=== PATIENT | male | born 1975 | race African-American/Black ===

== ENCOUNTER 2018-09-07 09:02 | Emergency (ER) | payer SELFPAY ==
[~2018-09-07] VITALS: Ht 175.3 cm; Wt 102.5 kg
[2018-09-07 09:18] VITALS: BP 145/80
[2018-09-07 09:58] LABS: Basophils # (auto) 0.1 uL; Basophils % (auto) 0.8 % (0.0-2.0); Eosinophils # (auto) 0.2 uL; Eosinophils % (auto) 2.4 % (0.0-7.0); Hematocrit 44.8 % (41.0-53.0); Hemoglobin 15.5 g/dL (13.5-17.5); Lymphocytes # (auto) 1.8 uL; Lymphocytes % (auto) 22.3 % (10.0-50.0); Mean Corpuscular Hemoglobin 31.3 pg (28.0-32.0); Mean Corpuscular Hgb Conc. 34.7 g/dL (32.0-36.0); Mean Corpuscular Volume 90.2 fL (80.0-100.0); Monocytes # (auto) 0.7 uL; Monocytes % (auto) 8.3 % (0.0-12.0); Neutrophils # (auto) 5.3 uL; Neutrophils % (auto) 66.2 % (37.0-80.0); Nucleated Red Blood Cells % 0.2 %; Platelet Count (auto) 300 10^3/uL (140-450); Red Blood Cells 4.96 10^6/uL (4.5-5.90); Red Cell Distribution Width 12.4 % (11.8-14.3); White Blood Cell 7.9 10^3/uL (4.4-10.8)
[2018-09-07 10:15] LABS: Albumin 4.1 g/dL (3.4-5.0); BUN/Creatinine Ratio 12.9; Calcium 8.7 mg/dL (8.5-10.1); Potassium 3.5 mmol/L (3.5-5.1)
[2018-09-07 10:20] LABS: Bilirubin, Total 0.5 mg/dL (0.2-1.0); Total Protein 8.1 g/dL (6.4-8.2)
[2018-09-07 10:47] LABS: Urine Bacteria NONE SEEN /hpf (None Seen); Urine Blood Negative /uL (Negative); Urine Mucus FEW (None Seen); Urine Specific Gravity 1.007 (1.001-1.035); Urine WBC 3 /hpf (0 - 3)
[2018-09-07] MEDS ORDERED: ASPirin 81 mg TAB PO ONE (11:00)
== END 2018-09-07 11:10 | disposition home or self-care (01) ==
LOC: ER 09:02
DX: R07.89 Other chest pain (principal); E78.5 Hyperlipidemia, unspecified; I10 Essential (primary) hypertension
CPT/HCPCS: 36415; 71046; 80053; 81001; 84484; 85025; 94761

== ENCOUNTER 2018-09-27 06:12 | Emergency (ER) | payer MEDICAID ==
[~2018-09-27] VITALS: Ht 175.3 cm; Wt 102.5 kg
[2018-09-27 07:46] LABS: Basophils # (auto) 0.1 uL; Basophils % (auto) 1.2 % (0.0-2.0); Eosinophils # (auto) 0.4 uL; Eosinophils % (auto) 4.7 % (0.0-7.0); Hemoglobin 14.7 g/dL (13.5-17.5); Lymphocytes # (auto) 1.4 uL; Lymphocytes % (auto) 16.5 % (10.0-50.0); Mean Corpuscular Hemoglobin 31.1 pg (28.0-32.0); Mean Corpuscular Hgb Conc. 34.2 g/dL (32.0-36.0); Monocytes # (auto) 0.9 uL; Monocytes % (auto) 9.9 % (0.0-12.0); Neutrophils # (auto) 5.9 uL; Neutrophils % (auto) 67.7 % (37.0-80.0); Platelet Count (auto) 271 10^3/uL (140-450); Red Blood Cells 4.73 10^6/uL (4.5-5.90); Red Cell Distribution Width 12.8 % (11.8-14.3); White Blood Cell 8.8 10^3/uL (4.4-10.8)
[2018-09-27 07:57] LABS: Potassium 3.9 mmol/L (3.5-5.1)
[2018-09-27] MEDS ORDERED: ASPirin 81 mg TAB PO ONE (08:00)
[2018-09-27 08:02] LABS: Albumin 3.9 g/dL (3.4-5.0); Calcium 8.6 mg/dL (8.5-10.1)
[2018-09-27 08:05] LABS: BUN/Creatinine Ratio 18.3; Bilirubin, Total 0.3 mg/dL (0.2-1.0); Total Protein 7.8 g/dL (6.4-8.2)
[2018-09-27 10:31] VITALS: BP 120/78
== END 2018-09-27 10:48 | disposition home or self-care (01) ==
LOC: ER 06:12
DX: M79.18 Myalgia, other site (principal); R00.2 Palpitations; E78.5 Hyperlipidemia, unspecified; I10 Essential (primary) hypertension
CPT/HCPCS: 36415; 80053; 84484; 85025; 93005

== ENCOUNTER 2018-10-15 15:50 | Emergency (ER) | payer MEDICAID ==
[~2018-10-15] VITALS: Ht 175.3 cm; Wt 107.0 kg
[2018-10-15] MEDS ORDERED: ACETAMINOPHEN 500 MG TAB PO ONE (16:15)
[2018-10-15 16:42] LABS: Basophils # (auto) 0.1 uL; Basophils % (auto) 0.5 % (0.0-2.0); Eosinophils # (auto) 0 uL; Eosinophils % (auto) 0.2 % (0.0-7.0); Hematocrit 40.8 % (41.0-53.0); Hemoglobin 13.9 g/dL (13.5-17.5); Lymphocytes % (auto) 9.5 % (10.0-50.0); Mean Corpuscular Hemoglobin 31.2 pg (28.0-32.0); Mean Corpuscular Volume 91.7 fL (80.0-100.0); Monocytes # (auto) 1.1 uL; Neutrophils # (auto) 8.2 uL; Neutrophils % (auto) 78.8 % (37.0-80.0); Platelet Count (auto) 267 10^3/uL (140-450); Red Blood Cells 4.45 10^6/uL (4.5-5.90); Red Cell Distribution Width 12.8 % (11.8-14.3); White Blood Cell 10.4 10^3/uL (4.4-10.8)
[2018-10-15 16:51] LABS: Albumin 3.4 g/dL (3.4-5.0); Anion Gap 10 (5-15); Calcium 8.3 mg/dL (8.5-10.1); Carbon Dioxide 21 mmol/L (21-32); Chloride 105 mmol/L (98-107); Glucose 90 mg/dL (74-106); Lipase 77 U/L (73-393); Potassium 3.5 mmol/L (3.5-5.1); Sodium 136 mmol/L (136-145)
[2018-10-15 16:53] LABS: Alanine Aminotransferase 28 U/L (16-61); Aspartate Aminotransferase 11 U/L (15-37); Blood Urea Nitrogen 9 mg/dL (7-18); GFR African American 133 mL/min; GFR Non-African American 110 mL/min
[2018-10-15 16:56] LABS: Alkaline Phosphatase 57 U/L (45-117); Bilirubin, Total 0.4 mg/dL (0.2-1.0); Total Protein 7.5 g/dL (6.4-8.2)
[2018-10-15 17:12] LABS: Urine Bacteria NONE SEEN /hpf (None Seen); Urine Blood 2+ /uL (Negative); Urine Mucus FEW (None Seen); Urine WBC 1 /hpf (0 - 3)
[2018-10-15 20:39] VITALS: BP 113/74
== END 2018-10-15 22:01 | disposition home or self-care (01) ==
LOC: ER 15:52
DX: I88.0 Nonspecific mesenteric lymphadenitis (principal); R50.9 Fever, unspecified; R11.2 Nausea with vomiting, unspecified; E78.5 Hyperlipidemia, unspecified; I10 Essential (primary) hypertension
CPT/HCPCS: 36415; 74176; 80053; 81001; 83605; 83690; 85025; 87040

== ENCOUNTER 2018-12-20 12:42 | Emergency (ER) | payer MEDICAID ==
[~2018-12-20] VITALS: Ht 175.3 cm; Wt 108.9 kg
[2018-12-20 13:30] LABS: Basophils # (auto) 0.1 uL; Basophils % (auto) 1.3 % (0.0-2.0); Eosinophils # (auto) 0.3 uL; Eosinophils % (auto) 4.2 % (0.0-7.0); Hematocrit 43.8 % (41.0-53.0); Lymphocytes # (auto) 2.4 uL; Lymphocytes % (auto) 29.2 % (10.0-50.0); Mean Corpuscular Hemoglobin 31.2 pg (28.0-32.0); Mean Corpuscular Hgb Conc. 34.4 g/dL (32.0-36.0); Mean Corpuscular Volume 90.9 fL (80.0-100.0); Monocytes # (auto) 0.7 uL; Monocytes % (auto) 8.8 % (0.0-12.0); Neutrophils # (auto) 4.6 uL; Neutrophils % (auto) 56.5 % (37.0-80.0); Nucleated Red Blood Cells % 0.1 %; Platelet Count (auto) 264 10^3/uL (140-450); Red Blood Cells 4.82 10^6/uL (4.5-5.90); White Blood Cell 8.2 10^3/uL (4.4-10.8)
[2018-12-20 13:49] LABS: Albumin 3.9 g/dL (3.4-5.0); Anion Gap 7 (5-15); Blood Urea Nitrogen 14 mg/dL (7-18); Calcium 8.5 mg/dL (8.5-10.1); Carbon Dioxide 26 mmol/L (21-32); Chloride 106 mmol/L (98-107); Glucose 105 mg/dL (74-106); Potassium 3.5 mmol/L (3.5-5.1); Sodium 139 mmol/L (136-145)
[2018-12-20 13:54] LABS: Alanine Aminotransferase 32 U/L (16-61); Alkaline Phosphatase 58 U/L (45-117); Aspartate Aminotransferase 13 U/L (15-37); BUN/Creatinine Ratio 14.9; Bilirubin, Total 0.4 mg/dL (0.2-1.0); GFR African American 114 mL/min; GFR Non-African American 94 mL/min
[2018-12-20 14:04] LABS: Cholesterol 140 mg/dL (< 200); Triglycerides 99 mg/dL (< 150)
[2018-12-20 14:05] LABS: HDL Cholesterol 58 mg/dL (40-59); LDL Cholesterol 75 mg/dL (< 100)
[2018-12-20 16:07] LABS: Urine WBC None Seen /hpf (0 - 3)
[2018-12-20 16:14] LABS: Urine Bacteria NONE SEEN /hpf (None Seen); Urine Blood Negative /uL (Negative); Urine Specific Gravity 1.006 (1.001-1.035)
[2018-12-20 16:15] VITALS: BP 113/63
[2018-12-20 16:32] LABS: Alcohol, Urine < 3.0 mg/dL (0-5); Amphetamine Screen, Urine NEGATIVE (NEGATIVE); Barbiturate Scree,Urine NEGATIVE (NEGATIVE); Benzodiazephine Screen, Urine NEGATIVE (NEGATIVE); Cannabinoid Screen, Urine POSITIVE (NEGATIVE); Cocaine Screen, Urine NEGATIVE (NEGATIVE); Opiate Scree,Urine NEGATIVE (NEGATIVE); Phencyclidine Screen, Urine NEGATIVE (NEGATIVE)
== END 2018-12-20 18:38 | disposition home or self-care (01) ==
LOC: ER 12:42
DX: R07.89 Other chest pain (principal); K29.70 Gastritis, unspecified, without bleeding; F12.188 Cannabis abuse with other cannabis-induced disorder; E78.5 Hyperlipidemia, unspecified; I10 Essential (primary) hypertension
CPT/HCPCS: 36415; 71046; 80053; 80061; 80307; 81001; 83735; 84484; 85025; 93005; 94761

== ENCOUNTER 2019-02-19 20:53 | Emergency (ER) | payer MEDICAID ==
[~2019-02-19] VITALS: Ht 175.3 cm; Wt 111.1 kg
[2019-02-19 21:41] LABS: Basophils # (auto) 0.1 uL; Basophils % (auto) 1.3 % (0.0-2.0); Eosinophils # (auto) 0.6 uL; Eosinophils % (auto) 6.2 % (0.0-7.0); Hematocrit 45.2 % (41.0-53.0); Hemoglobin 15.4 g/dL (13.5-17.5); Lymphocytes # (auto) 3.5 uL; Lymphocytes % (auto) 35.5 % (10.0-50.0); Mean Corpuscular Hemoglobin 31.1 pg (28.0-32.0); Mean Corpuscular Hgb Conc. 34.1 g/dL (32.0-36.0); Mean Corpuscular Volume 91.2 fL (80.0-100.0); Monocytes # (auto) 0.8 uL; Monocytes % (auto) 7.7 % (0.0-12.0); Neutrophils # (auto) 4.9 uL; Neutrophils % (auto) 49.3 % (37.0-80.0); Nucleated Red Blood Cells % 0.1 %; Platelet Count (auto) 263 10^3/uL (140-450); Red Blood Cells 4.96 10^6/uL (4.5-5.90); Red Cell Distribution Width 12.8 % (11.8-14.3); White Blood Cell 9.9 10^3/uL (4.4-10.8)
[2019-02-19 21:46] LABS: Alanine Aminotransferase 35 U/L (16-61); Anion Gap 8 (5-15); Aspartate Aminotransferase 15 U/L (15-37); Blood Urea Nitrogen 11 mg/dL (7-18); Calcium 8.9 mg/dL (8.5-10.1); Carbon Dioxide 23 mmol/L (21-32); Chloride 109 mmol/L (98-107); GFR African American 117 mL/min; GFR Non-African American 96 mL/min; Glucose 109 mg/dL (74-106); Potassium 3.7 mmol/L (3.5-5.1); Sodium 140 mmol/L (136-145)
[2019-02-19 21:51] LABS: Alkaline Phosphatase 62 U/L (45-117); Bilirubin, Total 0.4 mg/dL (0.2-1.0)
[2019-02-20 00:10] LABS: Urine Bacteria FEW /hpf (None Seen); Urine Blood Negative /uL (Negative); Urine Mucus FEW (None Seen); Urine Specific Gravity 1.029 (1.001-1.035); Urine WBC 2 /hpf (0 - 3)
[2019-02-20] MEDS ORDERED: LORazepam 0.5 MG TAB PO ONE (00:30)
[2019-02-20] MEDS ORDERED: ALUM & MAG HYDROX-SIMETH LIQ(MAALOX) 30 ML PO ONE (00:30)
[2019-02-20 06:21] VITALS: BP 133/73
== END 2019-02-20 06:41 | disposition home or self-care (01) ==
LOC: ER 20:56
DX: R07.9 Chest pain, unspecified (principal); E78.5 Hyperlipidemia, unspecified; I10 Essential (primary) hypertension; F12.90 Cannabis use, unspecified, uncomplicated; F15.90 Other stimulant use, unspecified, uncomplicated
CPT/HCPCS: 36415; 71046; 80053; 81001; 84484; 85025; 93005

== ENCOUNTER 2019-02-24 19:27 | Emergency (ER) | payer MEDICAID ==
[~2019-02-24] VITALS: Ht 175.3 cm; Wt 113.4 kg
[2019-02-24 20:02] VITALS: BP 150/79
[2019-02-24 20:13] LABS: Basophils # (auto) 0.1 uL; Basophils % (auto) 1.3 % (0.0-2.0); Eosinophils # (auto) 0.5 uL; Eosinophils % (auto) 5.2 % (0.0-7.0); Hematocrit 44.5 % (41.0-53.0); Hemoglobin 14.9 g/dL (13.5-17.5); Lymphocytes # (auto) 3.5 uL; Lymphocytes % (auto) 34.5 % (10.0-50.0); Mean Corpuscular Hemoglobin 30.7 pg (28.0-32.0); Mean Corpuscular Hgb Conc. 33.5 g/dL (32.0-36.0); Mean Corpuscular Volume 91.8 fL (80.0-100.0); Monocytes # (auto) 0.9 uL; Monocytes % (auto) 8.6 % (0.0-12.0); Neutrophils # (auto) 5.1 uL; Neutrophils % (auto) 50.4 % (37.0-80.0); Platelet Count (auto) 253 10^3/uL (140-450); Red Blood Cells 4.85 10^6/uL (4.5-5.90); Red Cell Distribution Width 12.8 % (11.8-14.3); White Blood Cell 10.1 10^3/uL (4.4-10.8)
[2019-02-24 20:29] LABS: Albumin 3.9 g/dL (3.4-5.0); Anion Gap 5 (5-15); Blood Alcohol < 3.0 mg/dL (0-5); Blood Urea Nitrogen 13 mg/dL (7-18); Calcium 8.4 mg/dL (8.5-10.1); Carbon Dioxide 26 mmol/L (21-32); Chloride 109 mmol/L (98-107); Glucose 108 mg/dL (74-106); Salicylate < 1.7 mg/dL (2.8-20.0); Sodium 140 mmol/L (136-145)
[2019-02-24 20:30] LABS: Acetaminophen < 2.0 ug/mL (10-30)
[2019-02-24 20:32] LABS: INR 0.95 (0.9-1.15); Partial Thromboplastin Time 23.6 sec (23.64-32.05)
[2019-02-24 20:33] LABS: Alanine Aminotransferase 29 U/L (16-61); Alkaline Phosphatase 59 U/L (45-117); Aspartate Aminotransferase 12 U/L (15-37); BUN/Creatinine Ratio 13.4; Bilirubin, Total 0.3 mg/dL (0.2-1.0); GFR African American 110 mL/min; GFR Non-African American 91 mL/min; Total Protein 7.6 g/dL (6.4-8.2)
[2019-02-24 20:36] LABS: Urine Bacteria NONE SEEN /hpf (None Seen); Urine Blood Negative /uL (Negative); Urine Mucus FEW (None Seen); Urine Specific Gravity 1.028 (1.001-1.035); Urine WBC 1 /hpf (0 - 3)
[2019-02-24 20:52] LABS: Alcohol, Urine < 3.0 mg/dL (0-5); Amphetamine Screen, Urine NEGATIVE (NEGATIVE); Barbiturate Scree,Urine NEGATIVE (NEGATIVE); Benzodiazephine Screen, Urine NEGATIVE (NEGATIVE); Cannabinoid Screen, Urine POSITIVE (NEGATIVE); Cocaine Screen, Urine NEGATIVE (NEGATIVE); Opiate Scree,Urine NEGATIVE (NEGATIVE); Phencyclidine Screen, Urine NEGATIVE (NEGATIVE)
== END 2019-02-25 00:22 | disposition left against medical advice (07) ==
LOC: ER 19:28
DX: R07.9 Chest pain, unspecified (principal); Z53.21 Procedure and treatment not carried out due to patient leaving prior to being seen by health care provider
CPT/HCPCS: 36415; 71046; 80053; 80307; 80320; 80329; 81001; 83735; 83880; 84484; 85025; 85610; 85730

== ENCOUNTER 2019-08-23 17:03 | Emergency (ER) | payer MEDICAID ==
[~2019-08-23] VITALS: Ht 175.3 cm; Wt 103.0 kg
[2019-08-23 17:30] VITALS: BP 106/56
[2019-08-23] MEDS ORDERED: TETANUS-DIPTH-ACEL PERTUSSIS 0.5ML SYR Tdap IM ONE (18:00)
== END 2019-08-23 18:18 | disposition home or self-care (01) ==
LOC: ER 17:03
DX: S61.412A Laceration without foreign body of left hand, initial encounter (principal); E78.5 Hyperlipidemia, unspecified; I10 Essential (primary) hypertension; W26.8XXA Contact with other sharp object(s), not elsewhere classified, initial encounter; Y93.89 Activity, other specified; Y92.89 Other specified places as the place of occurrence of the external cause; Y99.8 Other external cause status
CPT/HCPCS: 12002; 90471; 90715

== ENCOUNTER 2020-01-02 16:56 | Inpatient (IN) | payer MEDICAID ==
[~2020-01-02] VITALS: Ht 175.3 cm; Wt 99.0 kg
[2020-01-02 18:28] LABS: Basophils # (auto) 0.1 10 ^3/uL (0-0.2); Basophils % (auto) 0.7 % (0.0-2.0); Eosinophils # (auto) 0.2 10 ^3/uL (0-0.8); Eosinophils % (auto) 1.6 % (0.0-7.0); Hematocrit 27.7 % (41.0-53.0); Hemoglobin 8.8 g/dL (13.5-17.5); Lymphocytes # (auto) 1.8 10 ^3/uL (0.4-5.4); Lymphocytes % (auto) 13.6 % (10.0-50.0); Mean Corpuscular Hemoglobin 29.5 pg (28.0-32.0); Mean Corpuscular Hgb Conc. 31.9 g/dL (32.0-36.0); Mean Corpuscular Volume 92.3 fL (80.0-100.0); Monocytes # (auto) 1.8 10 ^3/uL (0-1.3); Monocytes % (auto) 13.5 % (0.0-12.0); Neutrophils # (auto) 9.5 10 ^3/uL (1.6-8.6); Neutrophils % (auto) 70.6 % (37.0-80.0); Nucleated Red Blood Cells % 0.3 %; Platelet Count (auto) 494 10^3/uL (140-450); Red Cell Distribution Width 12.5 % (11.8-14.3); White Blood Cell 13.4 10^3/uL (4.4-10.8)
[2020-01-02 18:41] LABS: Calcium 8.7 mg/dL (8.5-10.1); Magnesium 2.6 mg/dL (1.6-2.6); Potassium 4.4 mmol/L (3.5-5.1)
[2020-01-02 18:46] LABS: BUN/Creatinine Ratio 15.8; Bilirubin, Total 0.4 mg/dL (0.2-1.0); Total Protein 7.5 g/dL (6.4-8.2)
[2020-01-02] MEDS ORDERED: FUROSEMIDE 20 MG/2 ML VIAL IV ONE (21:15)
[2020-01-02] MEDS ORDERED: ONDANSETRON HCL 4 MG/2 ML VIAL IV PRN (21:45)
[2020-01-02] MEDS ORDERED: DEXTROSE (50%) 50ML SYRG IV PRN (21:45)
[2020-01-02] MEDS ORDERED: ACETAMINOPHEN 325 MG TAB PO PRN (21:45)
[2020-01-02] MEDS ORDERED: NITROGLYCERIN 0.4 MG SL TAB SL PRN (21:45)
[2020-01-02] MEDS ORDERED: LORazepam 0.5 MG TAB PO PRN (21:45)
[2020-01-02] MEDS ORDERED: MORPHINE SULFATE 4 MG/ML SYR/VIAL IV PRN (21:45)
[2020-01-02] MEDS: CARVEDILOL 3.125 MG TAB PO SCH (22:16)
[2020-01-02] MEDS: ATORVASTATIN 20 MG TAB PO SCH (22:17)
[2020-01-02] MEDS: ENOXAPARIN SOD 100 MG/1 ML SYRINGE SC SCH (22:17)
[2020-01-03] VITALS (8 sets, daily range): BP systolic 103–132; BP diastolic 64–76
[2020-01-03] MEDS: ACCU-CHEK COMFORT CURVE STRIP VI SCH ×3 (00:12→08:00)
--- NOTE | 2020-01-03 02:15 | NUR ---
Telemetry admit from JONATHAN TATUMTIFFANIE PEREZ admitted to Telemetry unit. No SBAR received. Patient oriented to MARLENY SOLITARIO, RN primary RN, unit, room, bed, and unit policies regarding patient care and visiting hours. Patient now on continuous telemetry monitoring, tele box #63 and telemetry reading on arrival to unit is sinus rhythm at 86. Patient weighed by bed scale and encouraged to call if they need something. All questions and concerns addressed, patient verbalized understanding. Note: Personal medications collected and logged. Will be sent to pharmacy for storage.
[2020-01-03] MEDS ORDERED: SUCR1SUS16 PO (02:25)
[2020-01-03] MEDS ORDERED: METH500T22 PO (02:25)
[2020-01-03] MEDS ORDERED: ONDA-144 PO (02:25)
[2020-01-03] MEDS ORDERED: METO25TA5 PO (02:25)
[2020-01-03] MEDS ORDERED: PANT40TA2 PO (02:25)
[2020-01-03] MEDS ORDERED: WARF1TAB36 PO (02:25)
--- NOTE | 2020-01-03 02:35 | NUR ---
MRSA swab collected and sent to lab via [employer] system.
[2020-01-03] MEDS: InsuLIN REG 1unit/0.01ml Soln (100units/ml) SC SCH ×3 (04:00→08:00)
--- NOTE | 2020-01-03 04:00 | NUR ---
Pictures taken of surgical incision for reference.
--- NOTE | 2020-01-03 06:17 | NUR ---
Urine sample collected and sent to lab via [employer] system.
[2020-01-03 06:47] LABS: Urine Bacteria NONE SEEN /hpf (None Seen); Urine Blood Negative /uL (Negative); Urine Mucus FEW (None Seen); Urine Specific Gravity 1.019 (1.001-1.035); Urine WBC 1 /hpf (0 - 3)
[2020-01-03] MEDS ORDERED: MORPHINE SULF INJ 2 MG/ML SYRINGE 1ML IV PRN (07:15)
--- NOTE | 2020-01-03 07:30 | NUR ---
Opening Shift Note Assumed care of patient, awake and alert. No S/S of distress/SOB or pain. Instructed on POC and to call for assist PRN, will continue to monitor for changes Q1hr and PRN.Bed is locked and in lowest position. Call light within reach.
[2020-01-03] MEDS: CLOPIDOGREL BISULFATE 75 MG TAB PO SCH (09:58)
[2020-01-03] MEDS: ASPirin 81 mg TAB PO SCH (09:58)
[2020-01-03] MEDS: LISINOPRIL 10 MG TAB PO SCH (09:59)
[2020-01-03] MEDS: DOCUSATE SOD 100 MG CAP PO SCH (09:59)
[2020-01-03] MEDS: CARVEDILOL 3.125 MG TAB PO SCH ×2 (09:59→22:12)
[2020-01-03] MEDS: ENOXAPARIN SOD 100 MG/1 ML SYRINGE SC SCH ×2 (10:00→22:11)
[2020-01-03 10:58] LABS: Basophils # (auto) 0.1 10 ^3/uL (0-0.2); Basophils % (auto) 0.9 % (0.0-2.0); Eosinophils # (auto) 0.3 10 ^3/uL (0-0.8); Eosinophils % (auto) 2.1 % (0.0-7.0); Hemoglobin 8.6 g/dL (13.5-17.5); Lymphocytes # (auto) 2.1 10 ^3/uL (0.4-5.4); Lymphocytes % (auto) 15.2 % (10.0-50.0); Mean Corpuscular Hemoglobin 30.4 pg (28.0-32.0); Mean Corpuscular Hgb Conc. 33.2 g/dL (32.0-36.0); Mean Corpuscular Volume 91.5 fL (80.0-100.0); Monocytes # (auto) 1.5 10 ^3/uL (0-1.3); Monocytes % (auto) 10.9 % (0.0-12.0); Neutrophils # (auto) 9.7 10 ^3/uL (1.6-8.6); Neutrophils % (auto) 70.9 % (37.0-80.0); Nucleated Red Blood Cells % 0.2 %; Platelet Count (auto) 449 10^3/uL (140-450); Red Blood Cells 2.84 10^6/uL (4.5-5.90); Red Cell Distribution Width 12.5 % (11.8-14.3); White Blood Cell 13.7 10^3/uL (4.4-10.8)
[2020-01-03 11:16] LABS: Calcium 8.4 mg/dL (8.5-10.1); Potassium 3.8 mmol/L (3.5-5.1)
--- NOTE | 2020-01-03 19:03 | NUR ---
STAT EKG ORDER FOR STAT EKG DR. CARMONA COMPLETED. EKG STRIP IS IN HARD CHART.
--- NOTE | 2020-01-03 19:45 | NUR ---
OPENING SHIFT NOTE Assumed care of patient who is A&O x4. Currently on RA. Denies SOB or dizziness. Reports mild pain to surgical incision, however declines pain management at this time. PIV in left forearm is intact and patent. Flushed with 10ml NS. POC discussed and all questions answered. Patient is agitated due to not seeing a doctor as of yet today. Patient reassured that his doctors have placed orders and initiated a POC. Bed is in low locked position with side rails up x2. Call light is within reach and patient encouraged to call for assistance when needed. Will continue to monitor for changes PRN.
[2020-01-03] MEDS: ATORVASTATIN 20 MG TAB PO SCH (22:11)
[2020-01-03] MEDS ORDERED: POLYETHYLENE GLYCOL 17 GM PWDR PO PRN (22:30)
[2020-01-03] MEDS ORDERED: PANTOPRAZOLE 40 MG TAB PO ONE ×2 (22:30→22:46)
[2020-01-03] MEDS ORDERED: POLYETHYLENE GLYCOL 17 GM PWDR PO ONE (22:30)
[2020-01-03] MEDS: DOXYCYCLINE 100MG/250ML 250 ML IV SCH (22:49)
[2020-01-04] VITALS (8 sets, daily range): BP systolic 97–135; BP diastolic 51–64
[2020-01-04] MEDS: ZOLPIDEM TARTRATE 5 MG TAB PO PRN ×2 (00:10→23:10)
--- NOTE | 2020-01-04 04:43 | NUR ---
ORTHOSTATIC VITALS Laying: pulse: 90, BP: 109/64 Sitting: pulse: 97, BP: 127/71 Standing: Pulse: 103, BP: 127/67
[2020-01-04 05:57] LABS: Basophils # (auto) 0.1 10 ^3/uL (0-0.2); Basophils % (auto) 0.7 % (0.0-2.0); Eosinophils # (auto) 0.3 10 ^3/uL (0-0.8); Eosinophils % (auto) 2.2 % (0.0-7.0); Hematocrit 25.5 % (41.0-53.0); Hemoglobin 8.5 g/dL (13.5-17.5); Lymphocytes # (auto) 2.3 10 ^3/uL (0.4-5.4); Lymphocytes % (auto) 16.6 % (10.0-50.0); Mean Corpuscular Hemoglobin 30.2 pg (28.0-32.0); Mean Corpuscular Hgb Conc. 33.2 g/dL (32.0-36.0); Monocytes # (auto) 1.5 10 ^3/uL (0-1.3); Neutrophils # (auto) 9.6 10 ^3/uL (1.6-8.6); Neutrophils % (auto) 69.5 % (37.0-80.0); Nucleated Red Blood Cells % 0.1 %; Platelet Count (auto) 426 10^3/uL (140-450); Red Blood Cells 2.81 10^6/uL (4.5-5.90); Red Cell Distribution Width 12.4 % (11.8-14.3); White Blood Cell 13.9 10^3/uL (4.4-10.8)
[2020-01-04 06:30] LABS: Potassium 3.6 mmol/L (3.5-5.1)
[2020-01-04 06:35] LABS: BUN/Creatinine Ratio 21.4
[2020-01-04] MEDS: PANTOPRAZOLE 40 MG TAB PO SCH (06:43)
--- NOTE | 2020-01-04 07:30 | NUR ---
Opening Shift Note Assumed care of patient, awake and alert. No S/S of distress/SOB or pain. Instructed on POC and to call for assist PRN, will continue to monitor for changes Q1hr and PRN. Bed is locked and in lowest position. Call light within reach.
[2020-01-04] MEDS: ASPirin 81 mg TAB PO SCH (09:52)
[2020-01-04] MEDS: DOXYCYCLINE 100MG/250ML 250 ML IV SCH ×2 (09:52→23:10)
[2020-01-04] MEDS: CARVEDILOL 3.125 MG TAB PO SCH (09:55)
[2020-01-04] MEDS: LISINOPRIL 10 MG TAB PO SCH (09:55)
[2020-01-04] MEDS: ENOXAPARIN SOD 100 MG/1 ML SYRINGE SC SCH (09:56)
[2020-01-04] MEDS: CLOPIDOGREL BISULFATE 75 MG TAB PO SCH (09:56)
[2020-01-04] MEDS: DOCUSATE SOD 100 MG CAP PO SCH (09:56)
[2020-01-04 11:44] LABS: INR 1.72 (0.9-1.15)
[2020-01-04] MEDS ORDERED: phytonadione 10 MG in SODIUM CHL 0.9% 50 ML IV ONE (12:45)
[2020-01-04] MEDS ORDERED: POTASSIUM CHL 20 Meq TABLET PO ONE (12:45)
--- NOTE | 2020-01-04 12:53 | NUR ---
DR. CARMONA CARDIO DR. CARMONA AT BEDSIDE FOR CARDIOLOGY CONSULTATION. DR. CARMONA INPUT ORDERS AND THEY WILL BE CARRIED OUT. DR. CARMONA WILL LIKE PATIENT TRANSFERRED TO [facility] FOR CLOSE OBSERVATION. REMELT OPERATOR GREGORY NOTIFIED REGARDING TRANSFER OF CARE. PATIENT UPDATED ON POC VERBALIZE UNDERSTANDING.
[2020-01-04] MEDS: SODIUM CHLORIDE 0.9% 1,000 ML IV SCH (14:41)
--- NOTE | 2020-01-04 17:30 | NUR ---
DR. BOLAÑOS AT BEDSIDE INFORMED ABOUT PATIENT TRANSFER TO [facility] WITH DR. MARIN. THE TRANSFER WAS ACCEPTED DR. CARMONA SPOKE TO DR. MARIN REGARDING PATIENTS POC. PATIENTS FILE WAS FAXED TO [facility] [phone] AND [facility] [phone] WITH AUTHORIZATION NUMBER OF [id number] IN FACE SHEET. SPOKE TO DESTINY FROM [facility] AT NUMBER [phone] REGARDING [facility] AUTHORIZATION AND CONFIRMATION FILE WAS RECEIVED. [facility] CAN BE CONTACTED AT [phone] SHOP SERVICE TECHNICIAN TO DETERMINE IF PAPERWORK WAS RECEIVED AND IF A BED IS AVAILABLE. WILL GIVE REPORT TO NIGHT RN TO FOLLOW UP WITH [facility] TRANSFER. WHEN BED IS AVAILABLE AT [facility] PLEASE CALL [phone] TO ARRANGE TRANSPORT. AUTHORIZATION NUMBER IS [id number]. PATIENT WAS TRANSFERRED TO [facility] STATUS PER DR. CARMONA. PATIENT WAS TRANSFERRED TO ROOM 271 [address].
--- NOTE | 2020-01-04 19:30 | NUR ---
Opening Shift Note Assumed care of patient, awake and alert x4. No S/S of distress/SOB or pain noted. Instructed on POC and to call for assist PRN. Call light within reach, side rails up x2, bed is in the lowest position. All questions and concerns answered, will continue to monitor for changes Q1hr and PRN.
--- NOTE | 2020-01-04 20:28 | NUR ---
1 unit of fresh frozen plasma started, witnessed by second RN Tracie. Explained to the patient the S/S of any reactions with a transfusion, patient verbalized understanding. VS are T-99.5, HR- 75. O2 SAT- 97%, BP-105/51, R-17. See transfusion documentation.
--- NOTE | 2020-01-04 20:43 | NUR ---
First 15 min into transfusion, no reaction noted. See VS in transfusion documentation. Call light is within reach. Will continue to monitor.
--- NOTE | 2020-01-04 21:36 | NUR ---
Called [facility], spoke with Ingrid in the Nursing Administration office. All transfer paperwork was received. There are no beds currently available on the tele floor, Ingrid stated she will be in the office tomorrow and will give an update if any beds become available.
--- NOTE | 2020-01-04 22:08 | NUR ---
Transfusion ended 1 unit of fresh frozen plasma infused. No reaction noted, call light is within reach.
--- NOTE | 2020-01-04 23:08 | NUR ---
1 hour post transfusion vitals BP-111/56, R-20, O2 SAT- 97%, T-99.7, HR- 93.
[2020-01-04] MEDS: ATORVASTATIN 20 MG TAB PO SCH (23:10)
[2020-01-05] MEDS: SODIUM CHLORIDE 0.9% 1,000 ML IV SCH ×2 (00:05→15:54)
[2020-01-05 05:00] VITALS: BP 112/61
[2020-01-05 05:25] LABS: Basophils # (auto) 0.1 10 ^3/uL (0-0.2); Basophils % (auto) 0.5 % (0.0-2.0); Eosinophils # (auto) 0.5 10 ^3/uL (0-0.8); Eosinophils % (auto) 3.9 % (0.0-7.0); Hematocrit 25.4 % (41.0-53.0); Hemoglobin 8.5 g/dL (13.5-17.5); Lymphocytes # (auto) 2.2 10 ^3/uL (0.4-5.4); Lymphocytes % (auto) 18.9 % (10.0-50.0); Mean Corpuscular Hemoglobin 30.3 pg (28.0-32.0); Mean Corpuscular Hgb Conc. 33.4 g/dL (32.0-36.0); Mean Corpuscular Volume 90.8 fL (80.0-100.0); Monocytes # (auto) 1.2 10 ^3/uL (0-1.3); Monocytes % (auto) 10.5 % (0.0-12.0); Neutrophils # (auto) 7.7 10 ^3/uL (1.6-8.6); Neutrophils % (auto) 66.2 % (37.0-80.0); Nucleated Red Blood Cells % 0.1 %; Platelet Count (auto) 381 10^3/uL (140-450); Red Blood Cells 2.79 10^6/uL (4.5-5.90); Red Cell Distribution Width 12.4 % (11.8-14.3); White Blood Cell 11.7 10^3/uL (4.4-10.8)
[2020-01-05 05:41] LABS: BUN/Creatinine Ratio 18.1; Calcium 8.1 mg/dL (8.5-10.1); Potassium 3.9 mmol/L (3.5-5.1)
--- NOTE | 2020-01-05 07:40 | NUR ---
Opening Note Received report from mallet cutter RN. Patient is awake, alert and oriented x4. No signs or symptoms of distress noted at this time. Patient is on room air, respirations even and unlabored. Patient denies pain at this time. Reviewed plan of care with patient, patient verbalized understanding. Bed in low and locked position, call light within reach. Will continue to monitor Q1 hour and PRN.
[2020-01-05 08:33] VITALS: BP 118/53
--- NOTE | 2020-01-05 09:04 | NUR ---
Dr. Massey station Updating this RN on plan of care. New orders received to place patient on cardiac 2gm Na diet. Will implement new orders, will continue to monitor Q1 hour and PRN.
--- NOTE | 2020-01-05 09:16 | NUR ---
electrical installation supervisor 01/04/2020 While electrical installation supervisor 01/04/2020 at 450pm I received a page from Dr Collier and Ramiro BECKHAM regarding transfer to higher level of care. I informed [place] to send Prder and transfer chart to [facility] [phone] and [facility] [phone] Auth# [id number] for Hospital per Margaret [facility] hospice case manager. [facility] Auth # [id number] per Margaret Mutuel Teller at [facility]. Bethany verbalized understanding. Addendum: 01/05/20 at 1523 by Romi VALDERRAMA Amended: Links added.
--- NOTE | 2020-01-05 10:05 | NUR ---
Patient ambulated Patient ambulated to restroom, unassisted. Patient tolerated well. Will continue to monitor Q1 hour and PRN.
[2020-01-05] MEDS: DOXYCYCLINE 100MG/250ML 250 ML IV SCH ×2 (10:20→22:32)
[2020-01-05] MEDS: PANTOPRAZOLE 40 MG TAB PO SCH (10:20)
[2020-01-05] MEDS: DOCUSATE SOD 100 MG CAP PO SCH (10:20)
--- NOTE | 2020-01-05 11:33 | NUR ---
1130 01/05/20 - Contacted [facility] transfer center at [phone] requesting update on pending transfer, per inhouse diesel powerplant supervisor there are no beds available and they have 17 patients on hold in the Emergency department.
[2020-01-05 13:00] VITALS: BP 133/85
--- NOTE | 2020-01-05 16:00 | NUR ---
Report given to [facility] Report called and given to Nely BECKHAM in [facility]. Patient to transfer to room 262 once clean.
--- NOTE | 2020-01-05 16:35 | NUR ---
Patient transferred to [facility] Patient transferred via gurney with all personal belongings. No signs or symptoms of distress noted at this time.
--- NOTE | 2020-01-05 16:40 | NUR ---
TRANSFER Received patient from 271[address] via bed after getting report from Bhavya RN. Patient is A&Ox4, denies pain and has no s/s of distress. Patient is awaiting a transfer to [facility] for HLOC when a bed is available. Patient has been accepted by Dr Lyn Finley. Patient connected to bedside monitor. Vitals signs as follows: HR 92 BP 126/72 RR 25 O2sats 97% on RA Temp 99.4F oral. Patient with IV to left AC #20. Line is patent flushes but is tender per patient. IVF of NS @ 75ml/hr held until new IV access can be obtained. Bed in lowest position, rails x2 up and call light within reach. Updated patient on plan of care. Will continue to monitor.
--- NOTE | 2020-01-05 17:13 | NUR ---
Patient states that as soon as he gets a ride, he is 'outta here'. Patient is afraid that he will get an infection. Patient states that he will get a ride to [place]. Dr Gautam Collier paged.
--- NOTE | 2020-01-05 18:25 | NUR ---
Dr Gautam Collier at bedside discussing patient's wishes to sign out AMA. All risks explained to patient. signed AMA paper. Patient not wanting to sign until his ride gets here.
--- NOTE | 2020-01-05 19:29 | NUR ---
END OF SHIFT Report given to NOC RN, Sherrie. Patient still waiting for ride to go AMA.
--- NOTE | 2020-01-05 19:37 | NUR ---
Called to patient's room. Patient states he is no longer leaving. His ride will not come because they spoke to a nurse friend who recommended them to have patient stay and wait for bed at [place]. Patient agreed to have RN tear up AMA form signed earlier by Dr Gautam Collier. Sherrie BECKHAM aware. Will notify Dr Gautam Collier.
[2020-01-05 20:00] VITALS: BP 133/74
--- NOTE | 2020-01-05 21:19 | NUR ---
Pt stable at this time, resting in bed. Ok in room and to stay. Called shay FERRIS to report that pt will not be leaving tonight. Will continue to monitor. Pt states a small pinch of pain to left chest but does not need pain medication at this time, perhaps to sleep. No S/S of distress. Incision well approximated and open to air.
[2020-01-05] MEDS: ATORVASTATIN 20 MG TAB PO SCH (22:32)
[2020-01-06] VITALS: BP 117/63
--- NOTE | 2020-01-06 00:30 | NUR ---
IV tender. DC IV, canula intact. Inserted new IV, 22g. Pt tolerated well. No S/S of distress.
[2020-01-06] MEDS: ZOLPIDEM TARTRATE 5 MG TAB PO PRN (03:02)
[2020-01-06 03:45] LABS: Basophils # (auto) 0.1 10 ^3/uL (0-0.2); Basophils % (auto) 0.9 % (0.0-2.0); Eosinophils # (auto) 0.4 10 ^3/uL (0-0.8); Eosinophils % (auto) 4.3 % (0.0-7.0); Hematocrit 28.3 % (41.0-53.0); Hemoglobin 9.1 g/dL (13.5-17.5); Lymphocytes # (auto) 1.6 10 ^3/uL (0.4-5.4); Lymphocytes % (auto) 15.3 % (10.0-50.0); Mean Corpuscular Hemoglobin 29.4 pg (28.0-32.0); Mean Corpuscular Hgb Conc. 32.1 g/dL (32.0-36.0); Mean Corpuscular Volume 91.5 fL (80.0-100.0); Monocytes # (auto) 1.1 10 ^3/uL (0-1.3); Monocytes % (auto) 10.7 % (0.0-12.0); Neutrophils # (auto) 7.1 10 ^3/uL (1.6-8.6); Neutrophils % (auto) 68.8 % (37.0-80.0); Nucleated Red Blood Cells % 0.1 %; Platelet Count (auto) 424 10^3/uL (140-450); Red Blood Cells 3.09 10^6/uL (4.5-5.90); Red Cell Distribution Width 12.8 % (11.8-14.3); White Blood Cell 10.3 10^3/uL (4.4-10.8)
[2020-01-06 04:00] VITALS: BP 114/74
[2020-01-06 04:03] LABS: BUN/Creatinine Ratio 15.1; Potassium 3.4 mmol/L (3.5-5.1)
--- NOTE | 2020-01-06 07:29 | NUR ---
RN was in another room, pt stated to CCT he wanted to leave AMA. Ana Maria RN on unit at shift change and went in to speak with pt. PT wants to sign AMA form. Report given, care endorsed.
--- NOTE | 2020-01-06 07:30 | NUR ---
OPENING SHIFT NOTE Received report from [facility] RN, Sherrie. Patient noted to be off bedside monitor. Upon entering room, patient appears angry and restless stating he isn't staying here anymore and his ride is on the way. Patient asking for the paper to sign out AMA. Dr Gautam Collier paged. Patient's IV removed with catheter intact and pressure dressing applied. Patient states that his ride is on his way and is an hour out. Patient is to wait for ride in lobby. Patient explained again the risks of leaving against medical advice to included, but not limited to: discomfort, disability, deterioration and/or . Patient also told that he will need to return to the emergency room and be readmitted if he changes his mind or experiences any chest pain, discomfort or any other life threatening symptoms. Patient states he is going to go home, shower and then take himself to [place] to follow up with his physician down there. Patient then dressed self and walk on his own accord to wait in the lobby. Addendum: 01/06/20 at 0752 by DANYEL WILLAMS RN T/C from Dr Gautam Collier. is aware of AMA. states he will be in later this morning to sign AMA paper.
--- NOTE | 2020-01-06 09:40 | NUR ---
POM Patient's girlfriend, Juana Blankenship, met at [facility] to collect patient's own medications received from pharmacy.
== END 2020-01-06 07:40 | disposition left against medical advice (07) | DRG 207 ==
LOC: ER 16:56 → TELE 16:57 → TELE-WESTW 01-03 01:54 → DOU IN ICU 01-05 16:31
PROVIDERS: ADMIT Hospitalist; ATTEND Internal Medicine
PROC: 30233K1 Transfusion of Nonautologous Frozen Plasma into Peripheral Vein, Percutaneous Approach (ICD-10-PCS; principal; 2020-01-04)
DX: I97.190 Other postprocedural cardiac functional disturbances following cardiac surgery (principal); I31.3 Pericardial effusion (noninflammatory); I21.4 Non-ST elevation (NSTEMI) myocardial infarction; E78.5 Hyperlipidemia, unspecified; K59.00 Constipation, unspecified; D72.829 Elevated white blood cell count, unspecified; F41.9 Anxiety disorder, unspecified; E66.01 Morbid (severe) obesity due to excess calories; R73.9 Hyperglycemia, unspecified; J98.11 Atelectasis; J90 Pleural effusion, not elsewhere classified; Z86.79 Personal history of other diseases of the circulatory system; Z79.82 Long term (current) use of aspirin; Z95.2 Presence of prosthetic heart valve; D68.9 Coagulation defect, unspecified; Y92.89 Other specified places as the place of occurrence of the external cause; Y83.8 Other surgical procedures as the cause of abnormal reaction of the patient, or of later complication, without mention of misadventure at the time of the procedure; I11.0 Hypertensive heart disease with heart failure; I50.22 Chronic systolic (congestive) heart failure; Z68.29 Body mass index [BMI] 29.0-29.9, adult
CPT/HCPCS: 36415; 71046; 80048; 80053; 80061; 81001; 82962; 83036; 83735; 84484; 85025; 85610; 86850; 86900; 86901; 87081; 93005; 93306; G0378; J3430; J3490